=== PATIENT | male | born 1940 | race Caucasian/White ===

== ENCOUNTER 2016-06-17 17:32 | Emergency (ER) | payer MEDICARE ==
[~2016-06-17] VITALS: Ht 177.8 cm; Wt 77.5 kg
[~2016-06-17 17:32] MED LIST: ASPI81TA82 PO; ATOR20TA42 PO; CLOP75 PO; LISI2.5T3 PO
[2016-06-17 17:35] VITALS: BP 177/82; PULSE 70; RESP 16; TEMP 97.9; O2SAT 98
[2016-06-17] MEDS ORDERED: ASPI1TAB69 PO (17:57)
[2016-06-17] MEDS ORDERED: PLAV75TA29 PO (17:57)
[2016-06-17] MEDS ORDERED: ATOR40TA16 PO (17:57)
[2016-06-17] MEDS ORDERED: LISI-519 PO (17:57)
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
== END 2016-06-17 18:54 | disposition home or self-care (01) ==
LOC: PHED 17:32
DX: S01.81XA Laceration without foreign body of other part of head, initial encounter (principal); E78.00 Pure hypercholesterolemia, unspecified; I10 Essential (primary) hypertension; Z95.5 Presence of coronary angioplasty implant and graft; Z79.01 Long term (current) use of anticoagulants; W22.8XXA Striking against or struck by other objects, initial encounter; Y93.9 Activity, unspecified; Y92.9 Unspecified place or not applicable; Y99.9 Unspecified external cause status
CPT/HCPCS: 12011